=== PATIENT | male | born 1980 | race African-American/Black ===

== ENCOUNTER 2017-04-12 14:09 | Emergency (ER) | payer OTHER ==
[2017-04-12] MEDS ORDERED: SODIUM CHLORIDE 0.9% 1,000 ML IV STA (16:27)
[2017-04-12] MEDS ORDERED: MAG HYDROX/AL HYDROX/SIMETH 30 ML, HYOSCYAMINE ELIXIR 10 ML, CIMETIDINE HCL 300 MG, LID... PO STA ×4 (16:27)
[2017-04-12] MEDS ORDERED: ONDANSETRON 4 MG/2 ML VIAL IVP STA (16:27)
--- NOTE | 2017-04-12 16:29 | ED ---
General Adult HPI - General Chief complaint: Upper Respiratory Infection Stated complaint: Abd pain Time Seen by Provider: 04/12/17 15:41 Source: patient, RN notes reviewed Mode of arrival: ambulatory Limitations: no limitations - History of Present Illness Initial comments: Patient 36-year-old male who presents emergency room today with a chief complaint of abdominal pain. Patient does admit that over the last 4 months been expressing pain in the epigastric area. He states he has decreased appetite with early fullness sensation when he eats. Does admit to symptoms of nausea. He does admit to a history of peptic ulcer disease. States is not taking any medications. States he usually smokes marijuana which helps him with his nausea and his appetite. Patient also admits that he's had some cough congestion and history of asthma. Does admit to increased sputum production in the mornings. Patient denies any other complaints or symptoms at this time. Patient denies any recent fever, chills, shortness of breath, chest pain, back pain, numbness or tingling, dysuria or hematuria, constipation or diarrhea, headaches or visual changes, or any other complaints. - Related Data Home Medications Medication Instructions Recorded Confirmed Ibuprofen [Motrin] 200 - 400 mg PO Q6HR PRN 04/12/17 04/12/17 Previous Rx's Medication Instructions Recorded Omeprazole [PriLOSEC] 20 mg PO AC-BRKFST 14 Days 04/12/17 Ondansetron Odt [Zofran ODT] 4 mg PO Q8HR PRN #20 tab 04/12/17 Allergies Allergy/AdvReac Type Severity Reaction Status Date / Time aspirin AdvReac Nausea & Verified 04/12/17 16:14 Vomiting Penicillins AdvReac Nausea & Verified 04/12/17 16:14 Vomiting Review of Systems ROS Statement: Those systems with pertinent positive or pertinent negative responses have been documented in the HPI. ROS Other: All systems not noted in ROS Statement are negative. Past Medical History Past Medical History: Asthma, Diabetes Mellitus Additional Past Medical History / Comment(s): Pt. reports his only known medical condition is asthma and possible undiagnosed arthritis. History of Any Multi-Drug Resistant Organisms: None Reported Past Surgical History: No Surgical Hx Reported Additional Past Surgical History / Comment(s): plastic surgery on face Past Anesthesia/Blood Transfusion Reactions: No Reported Reaction Past Psychological History: Bipolar Smoking Status: Current every day smoker Past Alcohol Use History: Occasional Past Drug Use History: Marijuana - Past Family History Mother History Unknown: Yes Father History Unknown: Yes General Exam - General Exam Comments Initial Comments: General: The patient is awake and alert, in no distress, and does not appear acutely ill. Eye: Pupils are equal, round and reactive to light, extra-ocular movements are intact. No nystagmus. There is normal conjunctiva bilaterally. No signs of icterus. Ears, nose, mouth and throat: There are moist mucous membranes and no oral lesions. Neck: The neck is supple, there is no tenderness or JVD. Cardiovascular: There is a regular rate and rhythm. No murmur, rub or gallop is appreciated. Respiratory: Lungs are clear to auscultation, respirations are non-labored, breath sounds are equal. No wheezes, stridor, rales, or rhonchi. Gastrointestinal: Normal. 7. Normal bowel sounds. Abdomen soft on palpation. Patient does have epigastric pain on palpation. Mild tenderness left upper quadrant. No rebound tenderness. No guarding. No CVA tenderness. Negative Keenan sign. Musculoskeletal: Normal ROM, no tenderness. Strength 5/5. Sensation intact. Pulses equal bilaterally 2+. Neurological: A&O x 3. CN II-XII intact, There are no obvious motor or sensory deficits. Coordination appears grossly intact. Speech is normal. Skin: Skin is warm and dry and no rashes or lesions are noted. Psychiatric: Cooperative, appropriate mood & affect, normal judgment. Limitations: no limitations Course Vital Signs 04/12/17 04/12/17 14:12 17:06 Temperature 98.2 F 97.7 F Pulse Rate 76 64 Respiratory 20 16 Rate Blood Pressure 123/66 135/81 O2 Sat by Pulse 98 99 Oximetry Medical Decision Making - Medical Decision Making Patient reexamined at this time shows no signs of distress. Resting comfortably. Patient's labs been reviewed. A long conversation was had with patient about importance of following up. Was discussed about possibility of a peptic ulcer disease. Advised patient to begin taking medication omeprazole. Also be given Zofran for his nausea. Advised to return if symptoms increase or worsen. Patient advised follow-up family doctor also be given GI. - Lab Data Result diagrams: 04/12/17 17:21 04/12/17 17:21 Lab Results 04/12/17 04/12/17 04/12/17 Range/Units 17:21 17:21 17:21 WBC 5.6 (3.8-10.6) k/uL RBC 5.00 (4.30-5.90) m/uL Hgb 16.2 (13.0-17.5) gm/dL Hct 45.6 (39.0-53.0) % MCV 91.3 (80.0-100.0) fL MCH 32.4 (25.0-35.0) pg MCHC 35.4 (31.0-37.0) g/dL RDW 12.7 (11.5-15.5) % Plt Count 242 (150-450) k/uL Neutrophils % 46 % Lymphocytes % 43 % Monocytes % 5 % Eosinophils % 3 % Basophils % 1 % Neutrophils # 2.6 (1.3-7.7) k/uL Lymphocytes # 2.4 (1.0-4.8) k/uL Monocytes # 0.3 (0-1.0) k/uL Eosinophils # 0.1 (0-0.7) k/uL Basophils # 0.1 (0-0.2) k/uL Sodium 141 (137-145) mmol/L Potassium 4.0 (3.5-5.1) mmol/L Chloride 107 (98-107) mmol/L Carbon Dioxide 25 (22-30) mmol/L Anion Gap 9 mmol/L BUN 7 L (9-20) mg/dL Creatinine 0.80 (0.66-1.25) mg/dL Est GFR (MDRD) Af Amer >60 (>60 ml/min/1.73 sqM) Est GFR (MDRD) Non-Af >60 (>60 ml/min/1.73 sqM) Glucose 81 (74-99) mg/dL Calcium 9.6 (8.4-10.2) mg/dL Total Bilirubin 1.3 (0.2-1.3) mg/dL AST 39 (17-59) U/L ALT 38 (21-72) U/L Alkaline Phosphatase 55 (38-126) U/L Total Protein 6.9 (6.3-8.2) g/dL Albumin 4.6 (3.5-5.0) g/dL Amylase 42 (30-110) U/L Lipase 40 (23-300) U/L Urine Color Light Yellow Urine Appearance Clear (Clear) Urine pH 5.5 (5.0-8.0) Ur Specific [place] 1.005 (1.001-1.035) Urine Protein Negative (Negative) Urine Glucose (UA) Negative (Negative) Urine Ketones 1+ H (Negative) Urine Blood Negative (Negative) Urine Nitrite Negative (Negative) Urine Bilirubin Negative (Negative) Urine Urobilinogen <2.0 (<2.0) mg/dL Ur Leukocyte Esterase Negative (Negative) Disposition Clinical Impression: Abdominal pain Disposition: HOME SELF-CARE Condition: Good Instructions: Abdominal Pain (ED) Additional Instructions: Please use medication as discussed. Please follow-up with GI/family doctor in the next 2 days of symptoms have not improved. Please return to emergency room if the symptoms increase or worsen or for any other concerns. Prescriptions: Omeprazole [PriLOSEC] 20 mg PO AC-BRKFST 14 Days Ondansetron Odt [Zofran ODT] 4 mg PO Q8HR PRN #20 tab PRN Reason: Nausea Referrals: None,Stated [Primary Care Provider] - 1-2 days Marisol Bernard MD [STAFF PHYSICIAN] - 1-2 days Chasidy Rodriguez MD [STAFF PHYSICIAN] - 1-2 days Time of Disposition: 18:11
[2017-04-12 17:08] VITALS: RESP 16
[2017-04-12 17:29] LABS: Appearance,Urine Clear (Clear); Bilirubin,Urine Negative (Negative); Glucose,Urine (UA) Negative (Negative); Ketones,Urine 1+ (Negative); Leukocyte Esterase,Urine Negative (Negative); Nitrite,Urine Negative (Negative); PH, Urine 5.5 (5.0-8.0); Protein,Urine Negative (Negative); Specific Gravity,Urine 1.005 (1.001-1.035); UA Billing (MACRO vs. MICRO) CHEM; Urobilinogen,Urine <2.0 mg/dL (<2.0)
[2017-04-12 17:38] LABS: Basophils # (A) 0.1 k/uL (0-0.2); Basophils % (A) 1 %; CH 31.7; CHCM 34.8; Eosinophils # (A) 0.1 k/uL (0-0.7); Eosinophils % (A) 3 %; HCT 45.6 % (39.0-53.0); HDW 2.56; HGB 16.2 gm/dL (13.0-17.5); Luc # (Auto) 0.15; Luc % (Auto) 3; Lymphocytes # (A) 2.4 k/uL (1.0-4.8); Lymphocytes % (A) 43 %; MCH 32.4 pg (25.0-35.0); MCHC 35.4 g/dL (31.0-37.0); MCV 91.3 fL (80.0-100.0); Mean Platelet Volume 6.6; Monocytes # (A) 0.3 k/uL (0-1.0); Monocytes % (A) 5 %; Neutrophils # (A) 2.6 k/uL (1.3-7.7); Neutrophils % (A) 46 %; RDW 12.7 % (11.5-15.5); WBC 5.6 k/uL (3.8-10.6); WBC (Perox) 5.32
--- NOTE | 2017-04-12 17:40 | XR ---
EXAMINATION TYPE: XR KUB DATE OF EXAM: 04/12/2017 COMPARISON: NONE HISTORY: Pain TECHNIQUE: 2 views FINDINGS: 2 upright views were obtained that show no sign of intestinal obstruction or pneumoperitone um. Fecal pattern is normal. Lung bases are clear. There are no pathologic calcifications over the ki dneys. IMPRESSION: Nonacute abdomen.
[2017-04-12 17:47] LABS: ALT 38 U/L (21-72); AST 39 U/L (17-59); Alkaline Phosphatase 55 U/L (38-126); Amylase 42 U/L (30-110); Anion Gap 9 mmol/L; Blood Urea Nitrogen 7 mg/dL (9-20); Calcium 9.6 mg/dL (8.4-10.2); Carbon Dioxide 25 mmol/L (22-30); Chloride 107 mmol/L (98-107); Glucose 81 mg/dL (74-99); Non-African American GFR(MDRD) >60 (>60 ml/min/1.73 sqM); Sodium 141 mmol/L (137-145); Total Bilirubin 1.3 mg/dL (0.2-1.3); Total Protein 6.9 g/dL (6.3-8.2)
[2017-04-12 18:19] VITALS: BP 111/63; PULSE 60
[2017-04-12 18:33] VITALS: TEMP 98.4
== END 2017-04-12 18:33 | disposition home or self-care (01) ==
LOC: EC 14:09
DX: R10.13 Epigastric pain (principal); R10.812 Left upper quadrant abdominal tenderness; R11.0 Nausea; R05 Cough; F17.200 Nicotine dependence, unspecified, uncomplicated; Z88.0 Allergy status to penicillin; Z88.6 Allergy status to analgesic agent
CPT/HCPCS: 99283; 96374; 96361; 36415; 80053; 82150; 83690; 85025; 81003; 74000; J2405

== ENCOUNTER 2018-04-15 18:15 | Emergency (ER) | payer OTHER ==
[2018-04-15] MEDS ORDERED: KETOROLAC 30 MG/ML 1 ML VIAL IM STA (19:16)
[2018-04-15] MEDS ORDERED: ACETAMINOPHEN TAB 500 MG TAB PO STA (19:16)
[2018-04-15] MEDS ORDERED: ORPHENADRINE 30 MG/ML 2 ML VIAL IM STA (19:16)
--- NOTE | 2018-04-15 19:50 | ED ---
Back Pain HPI - General Chief Complaint: Back Pain/Injury Stated Complaint: back pain Time Seen by Provider: 04/15/18 18:26 Source: patient Limitations: no limitations - History of Present Illness Initial Comments: 37 year-old male patient presents to the emergency department today for multiple complaints. States he has had an increase in his chronic low back pain over the last couple of weeks. Patient states that he is now having pain to the left upper back as well. Patient states that the pain worsened significantly after he was lifting 300 pound logs and chopping wood yesterday. States that he woke up with pain on the left side of his upper back radiating up into his neck and his head. He denies any radiation of the pain to his legs. Denies any numbness or tingling to his lower extremities. Denies any saddle anesthesia or loss of bowel or bladder control. Patient states that the pain has caused him to have a migraine. Patient states he does have a history of migraines as well. Patient states that the headache is located in his occipital region. States it radiates through to his left eye. States he did have some nausea with this as well. States it is typical of his usual migraine pattern. Denies any weakness, numbness, tingling, or vomiting. Patient states that he feels his asthma is getting worse. States he rode his bike the other day after a long while and he felt like he could not breathe. States he is taking Advair and albuterol as needed. Does admit that he doesn't take them as directed. States he does smoke approximately 5 cigarettes per day. Patient denies any recent rash, fever, chills, chest pain, abdominal pain, diarrhea, constipation, dizziness, hematuria, dysuria, urinary urgency, urinary frequency , headache, visual changes, or any other complaints. - Related Data Home Medications Medication Instructions Recorded Confirmed Ibuprofen [Motrin] 200 - 400 mg PO Q6HR PRN 04/12/17 04/15/18 Albuterol Inhaler [Ventolin Hfa 1 - 2 puff INHALATION RT-Q6H PRN 04/15/18 Inhaler] Beclomethasone Dipropionate [Qvar 1 inhalation PO BID 04/15/18 04/15/18 80 mcg] Cholecalciferol [Vitamin D3] 1,000 unit PO DAILY 04/15/18 04/15/18 buPROPion XL [Wellbutrin Xl] 150 mg PO DAILY 04/15/18 04/15/18 hydrOXYzine PAMOATE [Vistaril] 25 mg PO DAILY PRN 04/15/18 04/15/18 hydrOXYzine PAMOATE [Vistaril] 50 mg PO DAILY PRN 04/15/18 04/15/18 Previous Rx's Medication Instructions Recorded Omeprazole [PriLOSEC] 20 mg PO AC-BRKFST 14 Days cap 04/12/17 Cyclobenzaprine [Flexeril] 10 mg PO TID #15 tab 04/15/18 Ibuprofen [Motrin] 600 mg PO Q8HR PRN #30 tab 04/15/18 Allergies Allergy/AdvReac Type Severity Reaction Status Date / Time aspirin AdvReac Nausea & Verified 04/15/18 19:21 Vomiting Penicillins AdvReac Nausea & Verified 04/15/18 19:21 Vomiting Review of Systems ROS Statement: Those systems with pertinent positive or pertinent negative responses have been documented in the HPI. ROS Other: All systems not noted in ROS Statement are negative. Past Medical History Past Medical History: Asthma, Diabetes Mellitus Additional Past Medical History / Comment(s): migraines History of Any Multi-Drug Resistant Organisms: None Reported Past Surgical History: No Surgical Hx Reported Additional Past Surgical History / Comment(s): plastic surgery on face Past Anesthesia/Blood Transfusion Reactions: No Reported Reaction Past Psychological History: Bipolar Smoking Status: Current every day smoker Past Alcohol Use History: Occasional Past Drug Use History: Marijuana - Past Family History Mother History Unknown: Yes Father History Unknown: Yes General Exam Limitations: no limitations General appearance: alert, in no apparent distress, other (The well-developed, well-nourished adult male patient in no acute distress. Vital signs upon presentation are temperature 98.5F, pulse 69, respirations 20, blood pressure 120/70, pulse ox 99% on room air.) Eye exam: Present: normal appearance, PERRL, EOMI. Absent: scleral icterus, conjunctival injection, periorbital swelling ENT exam: Present: normal exam, normal oropharynx, mucous membranes moist Respiratory exam: Present: normal lung sounds bilaterally. Absent: respiratory distress, wheezes, rales, rhonchi, stridor Cardiovascular Exam: Present: regular rate, normal rhythm, normal heart sounds. Absent: systolic murmur, diastolic murmur, rubs, gallop, clicks GI/Abdominal exam: Present: soft, normal bowel sounds. Absent: distended, tenderness, guarding, rebound, rigid Back exam: Present: normal inspection, muscle spasm (Left upper back). Absent: paraspinal tenderness, vertebral tenderness Neurological exam: Present: alert, oriented X3, CN II-XII intact Psychiatric exam: Present: normal affect, normal mood Skin exam: Present: warm, dry, intact, normal color. Absent: rash Course Vital Signs 04/15/18 04/15/18 18:20 20:32 Temperature 98.5 F 97.8 F Pulse Rate 69 61 Respiratory 20 18 Rate Blood Pressure 120/70 124/63 O2 Sat by Pulse 99 98 Oximetry Medical Decision Making - Medical Decision Making 37-year-old male patient presents the emergency department today for evaluation of increased chronic back pain and reports of shortness of breath several days ago. Physical examination does reveal muscle spasm to the left upper thoracic paraspinal region. There is no spinal tenderness. Patient did have history of lifting 300 pound logs and chopping wood yesterday. Lungs are clear to auscultation with good air movement. Chest x-ray shows no acute cardiopulmonary process. Patient was given a prescription for muscle relaxers and ibuprofen. He is instructed to take ibuprofen with male. He is instructed to follow-up with his primary care physician for recheck in 1-2 days. Return parameters were discussed in detail. He verbalizes understanding and agrees with this plan. - Radiology Data Radiology results: report reviewed, image reviewed Two-view x-ray of the chest was obtained. Lungs are clear. Pleural spaces are negative. The cardiac silhouette is not enlarged. The mediastinal pleural Bello are unremarkable. Skeletal structures are intact without focal findings. The soft tissues are unremarkable. Impression by Dr. Mono Parr shows no acute process. Disposition Clinical Impression: Back pain, Muscle spasm Disposition: HOME SELF-CARE Condition: Good Instructions: Muscle Spasm (ED), Chronic Back Pain (ED) Additional Instructions: By warm moist heat to the painful areas. Take medications as directed. Follow- up with your primary care physician for recheck in 1-2 days. Return here immediately for any new, worsening, or concerning symptoms. Prescriptions: Cyclobenzaprine [Flexeril] 10 mg PO TID #15 tab Ibuprofen [Motrin] 600 mg PO Q8HR PRN #30 tab PRN Reason: Pain Is patient prescribed a controlled substance at d/c from ED?: No Referrals: Marisol Bernard MD [STAFF PHYSICIAN] - 1-2 days Time of Disposition: 20:28
[2018-04-15 20:34] VITALS: BP 124/63; PULSE 61; RESP 18; TEMP 97.8
--- NOTE | 2018-04-15 21:14 | XR ---
EXAMINATION: XR chest 2V DATE AND TIME: 04/15/2018 7:44 PM ORDERING PROVIDER: Juju Amado CLINICAL INDICATION: Pain TECHNIQUE: PA and lateral COMPARISON: 06/28/2015 DESCRIPTION: The lungs are clear. The pleural spaces are negative. The cardiac silhouette is not enlarged. The mediastinal and pleural silhouettes are unremarkable. The skeletal structures are intact without focal findings. The soft tissues are unremarkable. IMPRESSION: NO ACUTE PROCESS.
== END 2018-04-15 20:32 | disposition home or self-care (01) ==
LOC: EC 18:15
DX: M62.830 Muscle spasm of back (principal); J45.909 Unspecified asthma, uncomplicated; E11.9 Type 2 diabetes mellitus without complications; F31.9 Bipolar disorder, unspecified; F17.210 Nicotine dependence, cigarettes, uncomplicated; Z79.51 Long term (current) use of inhaled steroids; Z79.899 Other long term (current) drug therapy; Z88.0 Allergy status to penicillin; Z88.6 Allergy status to analgesic agent
CPT/HCPCS: 71046; 99283; 96372 ×2; J2360; J1885

== ENCOUNTER 2019-04-28 01:34 | Emergency (ER) | payer OTHER ==
--- NOTE | 2019-04-28 02:06 | XR ---
EXAM: XR Abdomen, 1 View CLINICAL HISTORY: ITS.REASON XR Reason: abdominal pain TECHNIQUE: Frontal supine view of the abdomen/pelvis. COMPARISON: 04/12/17 FINDINGS: Gastrointestinal tract: Unremarkable. No dilation. Bones/joints: No acute fracture. No dislocation. IMPRESSION: No acute findings.
[2019-04-28 02:25] LABS: ALT 32 U/L (21-72); AST 38 U/L (17-59); African American GFR (CKD) >90 (>60 ml/min/1.73 sqM); Albumin 3.7 g/dL (3.5-5.0); Alkaline Phosphatase 40 U/L (38-126); Amylase 46 U/L (30-110); Anion Gap 6 mmol/L; Blood Urea Nitrogen 12 mg/dL (9-20); Calcium 9.2 mg/dL (8.4-10.2); Carbon Dioxide 24 mmol/L (22-30); Chloride 109 mmol/L (98-107); Glucose 106 mg/dL (74-99); Lipase 75 U/L (23-300); Potassium 3.7 mmol/L (3.5-5.1); Sodium 139 mmol/L (137-145); Total Bilirubin 0.7 mg/dL (0.2-1.3); Total Protein 5.7 g/dL (6.3-8.2)
[2019-04-28 02:26] LABS: Appearance,Urine Clear (Clear); Bilirubin,Urine Negative (Negative); Blood,Urine Negative (Negative); Color,Urine Yellow; Glucose,Urine (UA) Negative (Negative); Ketones,Urine Negative (Negative); Leukocyte Esterase,Urine Negative (Negative); Nitrite,Urine Negative (Negative); PH, Urine 5.5 (5.0-8.0); Protein,Urine Negative (Negative); Specific Gravity,Urine 1.016 (1.001-1.035); Urobilinogen,Urine <2.0 mg/dL (<2.0)
[2019-04-28 02:27] LABS: Basophils % (A) 1 %; Eosinophils # (A) 0.3 k/uL (0-0.7); Eosinophils % (A) 4 %; HCT 46.6 % (39.0-53.0); HGB 15.2 gm/dL (13.0-17.5); Lymphocytes # (A) 3.7 k/uL (1.0-4.8); Lymphocytes % (A) 47 %; MCH 29.6 pg (25.0-35.0); MCHC 32.7 g/dL (31.0-37.0); MCV 90.3 fL (80.0-100.0); Mean Platelet Volume 6.3; Monocytes # (A) 0.2 k/uL (0-1.0); Monocytes % (A) 3 %; Neutrophils # (A) 3.4 k/uL (1.3-7.7); Neutrophils % (A) 43 %; Platelet Count 261 k/uL (150-450); RBC 5.15 m/uL (4.30-5.90); RDW 12.6 % (11.5-15.5)
[2019-04-28] MEDS ORDERED: KETOROLAC 30 MG/ML 1 ML VIAL IVP STA (03:21)
[2019-04-28] MEDS ORDERED: ONDANSETRON 4 MG/2 ML VIAL IVP STA (03:21)
[2019-04-28 03:26] VITALS: RESP 18
--- NOTE | 2019-04-28 04:09 | CT ---
EXAM: CT Abdomen and Pelvis With Intravenous Contrast CLINICAL HISTORY: ITS.REASON CT Reason: Pain TECHNIQUE: Axial computed tomography images of the abdomen and pelvis with intravenous contrast. CTDI is 7 mGy and DLP is 401 mGy-cm. This CT exam was performed using one or more of the following dose reduction techniques: automated exposure control, adjustment of the mA and/or kV according to patient size, and/or use of iterative reconstruction technique. COMPARISON: 03/27/15 CT FINDINGS: Lung bases: No mass. No consolidation. ABDOMEN: Liver: Hepatomegaly. Gallbladder and bile ducts: Unremarkable. Pancreas: Unremarkable. Spleen: Unremarkable. Adrenals: Unremarkable. Kidneys and ureters: No hydronephrosis. Stomach and bowel: No bowel obstruction. No bowel wall thickening. Copious amounts of stool throughout the colon. PELVIS: Appendix: No appendicitis. Bladder: Unremarkable. Reproductive: Unremarkable. ABDOMEN and PELVIS: Intraperitoneal space: Unremarkable. Bones/joints: No acute fractures. Soft tissues: Unremarkable. Vasculature: No abdominal aortic aneurysm. Lymph nodes: No enlarged lymph nodes. IMPRESSION: No acute intra-abdominal process. Hepatomegaly. Copious amounts of stool throughout the colon.
[2019-04-28] MEDS ORDERED: MAGNESIUM CITRATE 296 ML BOTTLE PO ONE (04:24)
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
[2019-04-28 04:44] VITALS: BP 118/69; PULSE 81; TEMP 98
== END 2019-04-28 04:50 | disposition home or self-care (01) ==
LOC: EC 01:34
DX: R10.9 Unspecified abdominal pain (principal); R63.0 Anorexia; J45.909 Unspecified asthma, uncomplicated; F31.9 Bipolar disorder, unspecified; F20.9 Schizophrenia, unspecified; F17.200 Nicotine dependence, unspecified, uncomplicated; Z79.51 Long term (current) use of inhaled steroids; Z79.899 Other long term (current) drug therapy; Z88.0 Allergy status to penicillin; Z88.6 Allergy status to analgesic agent; Z88.8 Allergy status to other drugs, medicaments and biological substances
CPT/HCPCS: 36415; 74018; 74177; 80053; 81003; 82150; 83690; 85025; 96374; 96375; 99284

== ENCOUNTER 2019-09-13 02:50 | Emergency (ER) | payer OTHER ==
[2019-09-13] MEDS ORDERED: ACETAMINOPHEN TAB 325 MG TAB PO STA (03:27)
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
[2019-09-13] MEDS ORDERED: ONDANSETRON ODT 4 MG TAB PO STA (03:46)
--- NOTE | 2019-09-13 03:48 | XR ---
EXAMINATION TYPE: XR thoracic spine 2V DATE OF EXAM: 09/13/2019 COMPARISON: Chest x-ray 04/15/2018 HISTORY: Back pain TECHNIQUE: 3 views FINDINGS: Vertebra have normal spacing and alignment. Posterior elements are intact. There is no para spinal mass. There is no compression fracture. IMPRESSION: Normal thoracic spine. No change.
[2019-09-13] MEDS: CYCLOBENZAPRINE 10MG STARTER 3 TAB BTL PO STA ×2 (04:40→05:07)
[2019-09-13 04:43] VITALS: BP 145/80; PULSE 95; RESP 18; TEMP 98
== END 2019-09-13 04:54 | disposition home or self-care (01) ==
LOC: EC 02:50
DX: S29.9XXA Unspecified injury of thorax, initial encounter (principal); R58 Hemorrhage, not elsewhere classified; J45.909 Unspecified asthma, uncomplicated; E11.9 Type 2 diabetes mellitus without complications; F17.200 Nicotine dependence, unspecified, uncomplicated; F31.9 Bipolar disorder, unspecified; Z79.899 Other long term (current) drug therapy; Z79.51 Long term (current) use of inhaled steroids; Z88.6 Allergy status to analgesic agent; Z88.0 Allergy status to penicillin; Z88.8 Allergy status to other drugs, medicaments and biological substances; W23.0XXA Caught, crushed, jammed, or pinched between moving objects, initial encounter; Y93.89 Activity, other specified
CPT/HCPCS: 72070; 99283

== ENCOUNTER 2022-01-20 06:08 | Emergency (ER) | payer OTHER ==
[2022-01-20 06:28] VITALS: BP 119/80; PULSE 83; RESP 16; TEMP 97.9
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
--- NOTE | 2022-01-20 07:10 | XR ---
EXAMINATION TYPE: XR lumbar spine 2 or 3V DATE OF EXAM: 01/20/2022 CLINICAL HISTORY: pain TECHNIQUE: Three views of the lumbar spine are submitted. COMPARISON: None. FINDINGS: There are 5 lumbar type vertebral bodies identified. The lumbar spine shows satisfactory alignment w ithout evidence of acute fracture or dislocation. Vertebral body heights are within normal limits. Disc spaces are within normal limits. The overlying soft tissue appears unremarkable. IMPRESSION: No acute fracture or dislocation is seen in the lumbar spine. ICD 10 NO FRACTURE, INITIAL EVALUATION
[2022-01-20] MEDS ORDERED: CYCLOBENZAPRINE 10MG STARTER 3 TAB BTL PO STA (07:19)
[2022-01-20] MEDS ORDERED: ACET/COD 300 MG/30 MG STARTER PACK 6 TAB BTL PO STA (07:19)
== END 2022-01-20 07:50 | disposition home or self-care (01) ==
LOC: EC 06:08
DX: S39.012A Strain of muscle, fascia and tendon of lower back, initial encounter (principal); J45.909 Unspecified asthma, uncomplicated; E11.9 Type 2 diabetes mellitus without complications; Z88.6 Allergy status to analgesic agent; Z88.0 Allergy status to penicillin; Z88.8 Allergy status to other drugs, medicaments and biological substances; Z79.51 Long term (current) use of inhaled steroids; X50.1XXA Overexertion from prolonged static or awkward postures, initial encounter
CPT/HCPCS: 72100; 99283

== ENCOUNTER 2022-01-21 00:46 | Emergency (ER) | payer OTHER ==
[2022-01-21 01:13] VITALS: TEMP 98
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
[2022-01-21 04:03] VITALS: BP 134/77; PULSE 65; RESP 16
[2022-01-21] MEDS ORDERED: FAMOTIDINE 20 MG TAB PO STA (04:04)
== END 2022-01-21 05:11 | disposition home or self-care (01) ==
LOC: EC 00:46
DX: F32.A Depression, unspecified (principal); J45.909 Unspecified asthma, uncomplicated; E11.9 Type 2 diabetes mellitus without complications; Z88.6 Allergy status to analgesic agent; Z88.0 Allergy status to penicillin; Z88.8 Allergy status to other drugs, medicaments and biological substances; Z79.51 Long term (current) use of inhaled steroids
CPT/HCPCS: 82075; 99284

== ENCOUNTER 2022-01-28 04:53 | Emergency (ER) | payer OTHER ==
[2022-01-28 05:29] VITALS: TEMP 98
[2022-01-28] MEDS ORDERED: SODIUM CHLORIDE 0.9% 1,000 ML IV STA ×2 (08:42)
[2022-01-28] MEDS ORDERED: ONDANSETRON 4 MG/2 ML VIAL IVP STA (08:43)
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
[2022-01-28 08:59] LABS: Basophils # (A) 0.1 k/uL (0-0.2); Basophils % (A) 1 %; Eosinophils # (A) 0.4 k/uL (0-0.7); Eosinophils % (A) 5 %; HCT 41.8 % (39.0-53.0); HGB 13.9 gm/dL (13.0-17.5); Lymphocytes # (A) 3.3 k/uL (1.0-4.8); Lymphocytes % (A) 42 %; MCH 30.4 pg (25.0-35.0); MCHC 33.1 g/dL (31.0-37.0); MCV 91.7 fL (80.0-100.0); Mean Platelet Volume 6.6; Monocytes # (A) 0.3 k/uL (0-1.0); Monocytes % (A) 4 %; Neutrophils # (A) 3.5 k/uL (1.3-7.7); Neutrophils % (A) 45 %; Platelet Count 289 k/uL (150-450); RBC 4.56 m/uL (4.30-5.90); RDW 12.9 % (11.5-15.5); WBC 7.8 k/uL (3.8-10.6)
[2022-01-28 09:18] LABS: ALT 25 U/L (4-49); AST 30 U/L (17-59); African American GFR (CKD) >90 (>60 ml/min/1.73 sqM); Albumin 3.7 g/dL (3.5-5.0); Alkaline Phosphatase 52 U/L (38-126); Anion Gap 4 mmol/L; Blood Urea Nitrogen 11 mg/dL (9-20); Calcium 8.4 mg/dL (8.4-10.2); Carbon Dioxide 28 mmol/L (22-30); Chloride 107 mmol/L (98-107); Glucose 94 mg/dL (74-99); Lipase 40 U/L (23-300); Non-African American GFR(CKD) >90 (>60 ml/min/1.73 sqM); Potassium 4.1 mmol/L (3.5-5.1); Sodium 139 mmol/L (137-145); Total Bilirubin 0.5 mg/dL (0.2-1.3); Total Protein 6.2 g/dL (6.3-8.2)
--- NOTE | 2022-01-28 09:24 | XR ---
EXAMINATION TYPE: XR KUB DATE OF EXAM: 01/28/2022 9:11 AM INDICATION: Patient age:Male; 41 years old; Reason for study: Abdominal pain; COMPARISON: None. TECHNIQUE: One radiographic view of the abdomen was obtained. FINDINGS: The bowel gas pattern is nonspecific without dilated loops of small or large bowel. There i s no evidence for organomegaly or pneumoperitoneum. The osseous structures are intact. No abnormal calcifications are present. Fecal material and gas are demonstrated throughout the colon and rectum. IMPRESSION: Nonspecific bowel gas pattern without radiographic evidence for acute process.
[2022-01-28 11:26] VITALS: BP 114/68; PULSE 67; RESP 16
== END 2022-01-28 12:54 | disposition home or self-care (01) ==
LOC: EC 04:53
DX: E86.0 Dehydration (principal); R10.13 Epigastric pain; E11.9 Type 2 diabetes mellitus without complications; J45.909 Unspecified asthma, uncomplicated; F31.9 Bipolar disorder, unspecified; F20.9 Schizophrenia, unspecified; G40.909 Epilepsy, unspecified, not intractable, without status epilepticus; F12.90 Cannabis use, unspecified, uncomplicated; Z79.51 Long term (current) use of inhaled steroids; Z79.899 Other long term (current) drug therapy
CPT/HCPCS: 36415; 80053; 83690; 85025; 74018; 99284; 96374; 96361 ×3; J2405

== ENCOUNTER 2022-02-06 02:17 | Emergency (ER) | payer OTHER ==
[2022-02-06 02:23] VITALS: BP 126/85; PULSE 75; RESP 18; TEMP 98
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
== END 2022-02-06 06:47 | disposition home or self-care (01) ==
LOC: EC 02:17
DX: M54.50 Low back pain, unspecified (principal); J45.909 Unspecified asthma, uncomplicated; E11.9 Type 2 diabetes mellitus without complications; F20.9 Schizophrenia, unspecified; Z79.1 Long term (current) use of non-steroidal anti-inflammatories (NSAID); Z88.0 Allergy status to penicillin
CPT/HCPCS: 72131; 99283; 99284